=== PATIENT | male | born 1935 | race Caucasian/White ===

== ENCOUNTER 2016-09-08 22:33 | Emergency (ER) | payer OTHER, MEDICARE ==
[~2016-09-08] VITALS: Ht 170.2 cm; Wt 72.6 kg
--- NOTE | 2016-09-08 23:55 | ED SKIN/ALLERGY COMPLAINT ---
History of Present Illness General Chief Complaint: Skin Rash/ Abcess Stated Complaint: ABSCESS L ARM Source: patient Exam Limitations: no limitations Vital Signs & Intake/Output Vital Signs & Intake/Output Vital Signs Date Time Temp Pulse Resp B/P B/P Pulse O2 O2 Flow FiO2 Mean Ox Delivery Rate 09/09 0029 96.7 82 20 120/74 97 Room Air 09/08 2337 97 Room Air 09/08 2238 98.2 93 18 122/72 95 Room Air ED Intake and Output 09/09 0000 09/08 1200 Intake Total Output Total Balance Patient 160 lb Weight Weight Reported by Patient Measurement Method Allergies Coded Allergies: No Known Drug Allergies (NKDA 09/08/16) Reconcile Medications Cephalexin (Keflex) 500 MG CAPSULE 1 CAP PO 4 TIMES/DAY CELLULITIS Sulfamethoxazole/Trimethoprim (Bactrim Ds Tablet) 800 MG-160 MG TABLET 1 TAB PO BID CELLULITIS Triage Note: PT TO ED C/O ABCESS TO LEFT FOREARM FOR A WEEK, HAS BEEN LARGE FOR THE LAST 5 DAYS. PMH OF SIMILAR ABCESS A YEAR AGO ON LEFT THIGH. WAS SEEN [facility] Triage Nurses Notes Reviewed? yes Onset: Gradual Duration: day(s):, waxing and waning Timing: recent history Severity: mild Location: left forearm Possible Factors: no cause identified Modifying Factors: Worsens With: scratching. Associated Symptoms: change in skin texture, pallor HPI: 80-year-old gentleman presents with 1-2 cm swollen tender red area that is draining pus from his left forearm. He has had these symptoms for the past 2-3 days. They're getting worse. He has no fever chills joint pain. He is otherwise well and has no other concerns. Past History Travel History Traveled to [place] past 21 day No Medical History Any Pertinent Medical History? see below for history EENT: cataracts Cardiovascular: hypertension Respiratory: asthma Musculoskeletal: osteoporosis Blood Disorders: thrombocytopenia Surgical History Surgical History: none Psychosocial History What is your primary language Citizen Of [place] Tobacco Use: Quit >30 days ago ETOH Use: denies use Illicit Drug Use: denies illicit drug use Family History Hx Contributory? No Review of Systems Review of Systems Constitutional: Reports: no symptoms. EENTM: Reports: no symptoms. Respiratory: Reports: no symptoms. Cardiovascular: Reports: no symptoms. GI: Reports: no symptoms. Genitourinary: Reports: no symptoms. Musculoskeletal: Reports: no symptoms. Skin: Reports: no symptoms. Neurological/Psychological: Reports: no symptoms. Hematologic/Endocrine: Reports: no symptoms. Immunologic/Allergic: Reports: no symptoms. All Other Systems: Reviewed and Negative Physical Exam Physical Exam General Appearance: well developed/nourished, mild distress Head: atraumatic Eyes: Bilateral: PERRL, EOMI. Ears, Nose, Throat: normal pharynx, normal ENT inspection, hearing grossly normal Neck: normal inspection, supple Respiratory: normal breath sounds Cardiovascular: regular rate/rhythm Gastrointestinal: soft, non-tender Back: normal inspection Extremities: normal range of motion, no edema, left forearm with a 2 cm area of swelling, tenderness, erythema, with a punctate area of purulent drainage. Consistent with abscess Neurologic/Psych: awake, alert, oriented x 3, normal mood/affect Lymphatic: no anterior cervical lilian Progress Differential Diagnosis: abscess versus cellulitis versus other. Plan of Care: Abscess drained without problem. Encourage close follow-up. Departure Departure Disposition: HOME OR SELF CARE Condition: Stable Clinical Impression Primary Impression: Abscess Referrals: KARO MAY MD (PCP/Family) Departure Forms: Customer Survey General Discharge Information Prescriptions: Current Visit Scripts Cephalexin (Keflex) 1 CAP PO 4 TIMES/DAY #40 CAP Sulfamethoxazole/Trimethoprim (Bactrim Ds Tablet) 1 TAB PO BID #20 TAB Procedures Incision and Drainage Site: left forearm Blade Size: 10 I & D Procedure: Yes: betadine prep, sterile drapes applied, sterile dressing applied, wick placed. Progress: excellent result... close follow advised... pt to complete 10 days of abx, including coverage for mrsa.
[2016-09-09] MEDS ORDERED: BACTRIM DS TAB1 EACH PO (00:21)
[2016-09-09] MEDS ORDERED: KEFLEX500 M1 PO (00:21)
[2016-09-09 00:29] VITALS: BP 120/74
== END 2016-09-09 00:30 ==
LOC: ERH 22:33
DX: L02.414 Cutaneous abscess of left upper limb (principal)